=== PATIENT | female | born 1980 | race African-American/Black ===

== ENCOUNTER 2018-12-24 13:38 | Emergency (ER) | payer OTHER, MEDICAID ==
[~2018-12-24] VITALS: Ht 160 cm; Wt 77.1 kg
[~2018-12-24 13:38] MED LIST: DICLEGIS DR 101 EACH PO; MECLIZINE 25 MG25 M1 PO; MECLIZINE HCL25 M1 PO; PHENERGAN 25 MG25 M1 PO; ZOFRAN ODT4 MG PO
[2018-12-24] MEDS ORDERED: ACTICIN 5% CREA60 G1 TOP (14:11)
[2018-12-24] MEDS ORDERED: MEDROLDOSEPACK PO (14:13)
[2018-12-24] MEDS ORDERED: TRIAMCINOLONE A80 G2 TOP (14:13)
[2018-12-24 14:22] VITALS: BP 119/81
== END 2018-12-24 14:24 | disposition home or self-care (01) ==
LOC: M.ERS 13:38
DX: R21 Rash and other nonspecific skin eruption (principal)